=== PATIENT | female | born 1990 | race Caucasian/White ===

== ENCOUNTER 2017-03-18 21:38 | Emergency (ER) | payer BC, OTHER ==
[2017-03-18 21:58] VITALS: BP 100/67
[2017-03-18] MEDS ORDERED: Lidocaine 1% 20 ML MDV INJECT ONE (22:03)
[2017-03-18] MEDS ORDERED: Diphtheria,Pertussis(Acell),Tetanus Vaccine 0.5 ML SDV inactive IM ONE (22:03)
--- NOTE | 2017-03-18 22:08 | EDM.PDOC ---
ED HPI GENERAL MEDICAL PROBLEM - General Chief Complaint: Laceration Stated Complaint: LACERATION TO RIGHT HAND Time Seen by Provider: 03/18/17 22:03 Source of Information: Reports: Patient History Limitations: Reports: No Limitations - History of Present Illness INITIAL COMMENTS - FREE TEXT/NARRATIVE: Patient is a 26-year-old female who presents to the ED complaining of a laceration to the right index finger. Patient was cutting vegetables when this occurred. Bleeding has been controlled. Pain minimal. She is unsure for Tetanus status. She has no additional complaints. Onset: Today, Sudden Duration: Constant Location: Reports: Upper Extremity, Right Quality: Reports: Ache Severity: Mild Context: Reports: Other Right Hand Pain Score (Numeric/FACES): 1 - Related Data Allergies Allergy/AdvReac Type Severity Reaction Status Date / Time No Known Allergies Allergy Verified 03/18/17 21:55 Home Meds: Home Meds Cephalexin [Keflex] 500 mg PO Q6HR #28 cap 03/18/17 [Rx] Past Medical History - Past Health History Medical/Surgical History: Denies Medical/Surgical History Respiratory History: Reports: Asthma, Other (See Below) Other Respiratory History: exercise induced. 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: - Infectious Disease History Infectious Disease History: Reports: Chicken Pox - Past Surgical History HEENT Surgical History: Reports: Oral Surgery Other HEENT Surgeries/Procedures: wisdom teeth Female Surgical History: Reports: Breast Implant Social & Family History - Family History Family Medical History: Noncontributory HEENT: Reports: None Cardiac: Reports: None Respiratory: Reports: Asthma GI: Reports: None : Reports: None OBGYN: Reports: Musculoskeletal: Reports: None Neurological: Reports: None Psychiatric: Reports: None Endocrine/Metabolic: Reports: None Hematologic: Reports: None Immunologic: Reports: None Dermatologic: Reports: None Oncologic: Reports: None - Tobacco Use Smoking Status *Q: Current Every Day Smoker Years of Tobacco use: 4 Packs/Tins Daily: 0.5 Second Hand Smoke Exposure: No - Caffeine Use Caffeine Use: Reports: None - Recreational Drug Use Recreational Drug Use: No ED ROS GENERAL - Review of Systems Review Of Systems: See Below Musculoskeletal: Reports: Other (right index finger pain 2nd to laceration) Neurological: Denies: Numbness, Tingling ED EXAM, SKIN/RASH Exam: See Below Exam Limited By: No Limitations General Appearance: Alert, WD/WN, No Apparent Distress Ears: Hearing Grossly Normal Nose: Normal Inspection Throat/Mouth: Normal Voice, No Airway Compromise Neck: Normal Inspection, Supple Respiratory/Chest: No Respiratory Distress, No Accessory Muscle Use Cardiovascular: Normal Peripheral Pulses, Regular Rate, Rhythm Peripheral Pulses: 2+: Radial (R) Extremities: Other (2cm laceration to the right index middle phalanx volar side. Able to extend finger against resistance with minimal pain. ) Neurological: Alert, Oriented, CN II-XII Intact, Normal Cognition, No Motor/ Sensory Deficits Psychiatric: Normal Affect, Normal Mood Skin: Warm, Dry, Normal Color ED SKIN PROCEDURES - Laceration/Wound Repair Right Finger Lac/wound length in cm: 2 Appearance: subcutaneous Distal NVT: neuro & vascular intact, other (extension tendon involvement) Anesthetic Type: other (patient refused anesthetic) Skin prep: saline, sterile drape Exploration/Debridement/Repair: wound explored, in a bloodless field, explored to base, no foreign material found Closed with: sutures Suture size: 4-0 # of sutures: 5 Suture type: prolene, interrupted, simple Drain placement: No Sterile dressing applied: nurse Tetanus status addressed: Yes Complications: No Course - Vital Signs Last Recorded V/S: Last Vital Signs Temp 99.2 F 03/18/17 21:56 Pulse 60 03/18/17 21:56 Resp 18 03/18/17 21:56 BP 100/67 03/18/17 21:56 Pulse Ox 98 03/18/17 21:56 - Orders/Labs/Meds Orders: Active Orders 24 hr Category Date Time Status Vaccines to be Administered [RC] PER UNIT ROUTINE Care 03/18/17 22:03 Active Meds: Medications Discontinued Medications Generic Name Dose Route Start Last Admin Trade Name Freq PRN Reason Stop Dose Admin Cephalexin 500 mg 03/18/17 22:45 Keflex PO 03/18/17 22:46 ONETIME ONE Diphtheria/Tetanus/Acell Pertussis 0.5 ml 03/18/17 22:03 03/18/17 22:17 Boostrix IM 03/18/17 22:04 0.5 ml .ONCE ONE Administration Lidocaine HCl 20 ml 03/18/17 22:03 Xylocaine 1% INJECT 03/18/17 22:04 ONETIME ONE Lidocaine HCl Confirm 05/14/17 22:16 Xylocaine 1% Administered 03/18/17 22:17 Dose 50 ml .ROUTE .STK-MED ONE Lidocaine HCl 50 ml 03/18/17 22:21 Xylocaine 1% INJECT 03/18/17 22:22 ONETIME ONE - Re-Assessments/Exams Free Text/Narrative Re-Assessment/Exam: 03/18/17 22:04 2cm deep laceration to the right index finger middle phalanx. Ordered 1% lidocaine and tetanus update. 03/18/17 22:44 Laceration closed with no complications. Partial laceration of the middle phalanx extensor tendon. Dressing along with triple antibiotic ointment and splint applied by nursing staff. Ordered keflex 500mg PO. Departure - Departure Time of Disposition: 22:46 Disposition: Home, Self-Care 01 Condition: good Clinical Impression: Finger laceration involving tendon Qualifiers: Encounter type: initial encounter Qualified Code(s): S61.219A - Laceration without foreign body of unspecified finger without damage to nail, initial encounter; S66.929A - Laceration of unspecified muscle, fascia and tendon at wrist and hand level, unspecified hand, initial encounter - Discharge Information Prescriptions: Cephalexin [Keflex] 500 mg PO Q6HR #28 cap Instructions: Stitches, Delbert, or Adhesive Wound Closure, [id number], Laceration Care, Adult, [id number] Referrals: Kelli Gould PA-C [Primary Care Provider] - Forms: ED Department Discharge Additional Instructions: Clean site twice daily with soap and water, pat dry, reapply triple antibiotic ointment, and dressing. Keep area clean and dry. Followup with provider at the walk in clinic for suture removal in 7 days. Take the full course of the antibiotic as prescribed. Leave splint in place for one month only taking off to shower and wash hands. See orthopedic surgeon if you experience difficulty with extending your finger. Return to the E.D. for increased redness, increased pain, or purulent drainage. - My Orders Last 24 Hours: My Active Orders 03/18/17 22:03 Vaccines to be Administered [RC] PER UNIT ROUTINE - Assessment/Plan Last 24 Hours: My Active Orders 03/18/17 22:03 Vaccines to be Administered [RC] PER UNIT ROUTINE
[2017-03-18] MEDS ORDERED: Lidocaine 1% 50 ML MDV ONE (22:16)
[2017-03-18] MEDS ORDERED: Lidocaine 1% 10 ML MDV INJECT ONE (22:21)
[2017-03-18] MEDS ORDERED: Cephalexin 500 MG Cap PO ONE (22:45)
== END 2017-03-18 22:47 | disposition home or self-care (01) ==
LOC: JD.ED 21:38
DX: S61.210A Laceration without foreign body of right index finger without damage to nail, initial encounter (principal); S66.122A Laceration of flexor muscle, fascia and tendon of right middle finger at wrist and hand level, initial encounter; J45.909 Unspecified asthma, uncomplicated; F17.210 Nicotine dependence, cigarettes, uncomplicated; W26.0XXA Contact with knife, initial encounter
CPT/HCPCS: 12001; 90471; 99283; A9270; 90715

== ENCOUNTER 2017-06-01 18:56 | Emergency (ER) | payer OTHER ==
[2017-06-01] MEDS ORDERED: Lidocaine 1% 50 ML MDV INJECT ONE (19:30)
[2017-06-01] MEDS ORDERED: Lidocaine 1% 20 ML MDV INJECT ONE (19:35)
[2017-06-01] MEDS ORDERED: Lidocaine 1% 50 ML MDV ONE (19:39)
--- NOTE | 2017-06-01 20:12 | EDM.PDOC ---
ED HPI GENERAL MEDICAL PROBLEM - General Chief Complaint: Laceration Stated Complaint: FALL AND LACERATION TO RIGHT FOOT Time Seen by Provider: 06/01/17 19:06 Source of Information: Reports: Patient History Limitations: Reports: No Limitations - History of Present Illness INITIAL COMMENTS - FREE TEXT/NARRATIVE: This is a 26 y/o female. She tripped over a saw and cut her left foot on the medial side just above the arch area. She is up to date with her tetanus. She denies any other acute symptoms. 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 [No Known Home Meds] 06/01/17 [History] Past Medical History - Past Health History Medical/Surgical History: Denies Medical/Surgical History Respiratory History: Reports: Asthma, Other (See Below) Other Respiratory History: exercise induced. 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: - Infectious Disease History Infectious Disease History: Reports: Chicken Pox - Past Surgical History HEENT Surgical History: Reports: Oral Surgery Other HEENT Surgeries/Procedures: wisdom teeth Female Surgical History: Reports: Breast Implant Social & Family History - Family History Family Medical History: Noncontributory HEENT: Reports: None Cardiac: Reports: None Respiratory: Reports: Asthma GI: Reports: None : Reports: None OBGYN: Reports: Musculoskeletal: Reports: None Neurological: Reports: None Psychiatric: Reports: None Endocrine/Metabolic: Reports: None Hematologic: Reports: None Immunologic: Reports: None Dermatologic: Reports: None Oncologic: Reports: None - Tobacco Use Smoking Status *Q: Never Smoker Years of Tobacco use: 4 Packs/Tins Daily: 0.5 Second Hand Smoke Exposure: No - Caffeine Use Caffeine Use: Reports: Coffee - Recreational Drug Use Recreational Drug Use: No ED ROS GENERAL - Review of Systems Review Of Systems: See Below Constitutional: Reports: No Symptoms HEENT: Reports: No Symptoms Respiratory: Reports: No Symptoms Cardiovascular: Reports: No Symptoms Endocrine: Reports: No Symptoms GI/Abdominal: Reports: No Symptoms : Reports: No Symptoms Musculoskeletal: Reports: Other (As per HPI) Skin: Reports: Other (As per HPI) Neurological: Reports: No Symptoms Hematologic/Lymphatic: Reports: No Symptoms ED EXAM, SKIN/RASH Exam: See Below Exam Limited By: No Limitations General Appearance: Alert, WD/WN, No Apparent Distress Eye Exam: Bilateral Eye: Normal Inspection Ears: Normal External Exam Nose: Normal Inspection Throat/Mouth: Normal Lips, Normal Voice Head: Atraumatic Neck: Supple Respiratory/Chest: No Respiratory Distress Back Exam: Full Range of Motion Extremities: Other (Left foot on the medial side slightly posterior and above the arch is a 6 cm linear laceration. There appears to be some muscle showing from the laceration about 3 cm bulging out. NV intact distal to the laceration. ) Neurological: Alert, Oriented Psychiatric: Normal Affect, Normal Mood Skin: Warm, Dry ED SKIN PROCEDURES - Laceration/Wound Repair Left Medial Foot Lac/Wound length In cm: 6 Appearance: Linear, Clean Distal NVT: Neuro & Vascular Intact Anesthetic Type: Local Local Anesthesia - Lidocaine (Xylocaine): 1% Plain Local Anesthetic Volume: Other (10 cc) Skin Prep: Chlorhexidine (Hibiciens), Providone-Iodine (Betadine) Saline Irrigation (cc's): 200 Exploration/Debridement/Repair: Wound Explored, Explored to Base, No Foreign Material Found Suture Size: 4-0 # of Sutures: 6 Suture Type: Nylon Suture Size: 3-0 (chromic) # of Sutures: 2 Drain Placement: No Sterile Dressing Applied: Nurse Tetanus Status Addressed: Yes Complications: No Progress/Comments: Patient tolerated the procedure well. Course - Vital Signs Last Recorded V/S: Last Vital Signs Temp 98.4 F 06/01/17 19:06 Pulse 78 06/01/17 19:06 Resp 18 06/01/17 19:06 BP 121/78 06/01/17 19:06 Pulse Ox 98 06/01/17 19:06 - Orders/Labs/Meds Meds: Medications Discontinued Medications Generic Name Dose Route Start Last Admin Trade Name Linda PRN Reason Stop Dose Admin Lidocaine HCl 20 ml 06/01/17 19:35 06/01/17 19:49 Xylocaine 1% INJECT 06/01/17 19:36 Not Given ONETIME ONE Lidocaine HCl Confirm 06/01/17 19:39 06/01/17 19:50 Xylocaine 1% Administered 06/01/17 19:40 Not Given Dose 50 ml .ROUTE .STK-MED ONE Lidocaine HCl 50 ml 06/01/17 19:30 Xylocaine 1% INJECT 06/01/17 19:31 ONETIME ONE Departure - Departure Time of Disposition: 20:13 Disposition: Home, Self-Care 01 Condition: Good Clinical Impression: Laceration of left foot - Discharge Information Referrals: Kelli Gould PA-C [Primary Care Provider] - Forms: ED Department Discharge Additional Instructions: Keep the area clean, dry and covered. Remember it will be sore so take some ibuprophen, tylenol or aleve. Suture removal in 10 days with the ER or your provider. Watch for signs of infection such as redness, yellow purulent drainage or increase swelling. If signs of infection return to the ER immediately.
[2017-06-02 00:18] VITALS: BP 121/78
== END 2017-06-01 20:38 | disposition home or self-care (01) ==
LOC: JD.ED 18:56
DX: S91.312A Laceration without foreign body, left foot, initial encounter (principal); J45.909 Unspecified asthma, uncomplicated; Z98.890 Other specified postprocedural states; W27.0XXA Contact with workbench tool, initial encounter
CPT/HCPCS: 12042; 99282-25; 99283-25

== ENCOUNTER 2017-06-11 10:50 | Emergency (ER) | payer OTHER ==
[2017-06-11 11:02] VITALS: BP 101/54
--- NOTE | 2017-06-11 11:14 | EDM.PDOC ---
ED HPI GENERAL MEDICAL PROBLEM - General Chief Complaint: Wound Recheck Stated Complaint: REMOVAL OF STITCHES Time Seen by Provider: 06/11/17 11:09 Source of Information: Reports: Patient History Limitations: Reports: No Limitations - History of Present Illness INITIAL COMMENTS - FREE TEXT/NARRATIVE: Patient is a 26-year-old female reports back to the ED to have sutures removed from the left foot. She sustained a laceration after accidentally running into a saw antonio. Laceration measured approximately 6 cm requiring 6 sutures 10 days ago. Patient has been cleansing the site with antibacterial soap and placing bacitracin. She remains active going to the gym. Pain is minimal. There is some mild redness to suture line with no purulent drainage or increased warmth noted. Patient has minimal pain. Left Feet Pain Score (Numeric/FACES): 2 - Related Data Allergies Allergy/AdvReac Type Severity Reaction Status Date / Time No Known Allergies Allergy Verified 06/11/17 11:00 Home Meds: Home Meds . [No Known Home Meds] 06/01/17 [History] Past Medical History - Past Health History Medical/Surgical History: Denies Medical/Surgical History Respiratory History: Reports: Asthma, Other (See Below) Other Respiratory History: exercise induced. 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: - Infectious Disease History Infectious Disease History: Reports: Chicken Pox - Past Surgical History HEENT Surgical History: Reports: Oral Surgery Other HEENT Surgeries/Procedures: wisdom teeth Female Surgical History: Reports: Breast Implant Social & Family History - Family History Family Medical History: Noncontributory HEENT: Reports: None Cardiac: Reports: None Respiratory: Reports: Asthma GI: Reports: None : Reports: None OBGYN: Reports: Musculoskeletal: Reports: None Neurological: Reports: None Psychiatric: Reports: None Endocrine/Metabolic: Reports: None Hematologic: Reports: None Immunologic: Reports: None Dermatologic: Reports: None Oncologic: Reports: None - Tobacco Use Smoking Status *Q: Never Smoker Years of Tobacco use: 4 Packs/Tins Daily: 0.5 Second Hand Smoke Exposure: No - Caffeine Use Caffeine Use: Reports: Coffee - Recreational Drug Use Recreational Drug Use: No ED ROS GENERAL - Review of Systems Review Of Systems: ROS reveals no pertinent complaints other than HPI. ED EXAM, SKIN/RASH Exam: See Below Exam Limited By: No Limitations General Appearance: Alert, WD/WN, No Apparent Distress Ears: Hearing Grossly Normal Nose: Normal Inspection Throat/Mouth: Normal Voice, No Airway Compromise Neck: Normal Inspection, Supple Respiratory/Chest: No Respiratory Distress, No Accessory Muscle Use Cardiovascular: Normal Peripheral Pulses, Regular Rate, Rhythm Extremities: Other (Laceration to the medial aspect foot with sutures in place. Wound redness noted to the suture line consistent for suture reaction. No increased warmth or purulent drainage present. Wound edges are approximated but are not completely granulated together. Will hold off on removing sutures for additional 4 days. ) Neurological: Alert, Oriented, Normal Cognition, No Motor/Sensory Deficits Psychiatric: Normal Affect, Normal Mood Course - Vital Signs Last Recorded V/S: Last Vital Signs Temp 98.0 F 06/11/17 11:01 Pulse 87 06/11/17 11:01 Resp 16 06/11/17 11:01 BP 101/54 L 06/11/17 11:01 Pulse Ox 99 06/11/17 11:01 - Re-Assessments/Exams Free Text/Narrative Re-Assessment/Exam: Sutures are in place. Mild redness to suture line. No increased warmth or purulent drainage present. Will leave sutures in place for another 4 days. Wound edges are approximated but do not appear to be granulated together. Will discharge patient home with instructions as documented. Departure - Departure Time of Disposition: 11:21 Disposition: Home, Self-Care 01 Condition: Good Clinical Impression: Laceration of left foot Qualifiers: Encounter type: subsequent encounter Qualified Code(s): S91.312D - Laceration without foreign body, left foot, subsequent encounter - Discharge Information Instructions: Wound Infection, [id number], Stitches, Delbert, or Adhesive Wound Closure, [id number] Referrals: Kelli Gould PA-C [Primary Care Provider] - Forms: ED Department Discharge Additional Instructions: See your PCP or return back to the ED to have sutures removed in 4 days. Cleanse site twice daily with soap and water, pat dry, reapply triple antibiotic ointment. Keep area clean and dry. Return back to ED for any signs of infection.
== END 2017-06-11 11:35 | disposition home or self-care (01) ==
LOC: JD.ED 10:50
DX: S91.312D Laceration without foreign body, left foot, subsequent encounter (principal); W31.2XXD Contact with powered woodworking and forming machines, subsequent encounter
CPT/HCPCS: 99283

== ENCOUNTER 2025-01-06 21:52 | Observation (INO) | payer BC ==
[2025-01-06 22:40] LABS: APPEARANCE,URINE CLEAR (Clear); BILIRUBIN,URINE NEGATIVE (Negative); COLOR,URINE YELLOW (Yellow); GLUCOSE,URINE NEGATIVE (Negative); KETONES,URINE NEGATIVE (Negative); LEUKOCYTE ESTERASE,URINE NEGATIVE (Negative); NITRITE,URINE NEGATIVE (Negative); OCCULT BLOOD,URINE TRACE-INTACT (Negative); PROTEIN,URINE NEGATIVE (Negative); UROBILINOGEN,URINE 0.2 (0.2-1.0)
[2025-01-06 22:48] LABS: BACTERIA,URINE MODERATE /hpf (FEW); MUCUS,URINE MODERATE /hpf (FEW); WBC,URINE 0-5 /hpf (0-5)
[2025-01-06 23:13] VITALS: BP 112/60; PULSE 97
== END 2025-01-07 00:05 | disposition home or self-care (01) ==
LOC: JD.OBCHECK 21:52 → JD.OB 21:56 → JD.OBCHECK 22:28 → UNDOADMOB 22:28 → UNDODISOB 01-07 00:05
PROVIDERS: ADMIT Family Medicine; ATTEND Family Medicine
DX: O26.892 Other specified pregnancy related conditions, second trimester (principal); R10.9 Unspecified abdominal pain; O46.92 Antepartum hemorrhage, unspecified, second trimester; Z3A.24 24 weeks gestation of pregnancy
CPT/HCPCS: 59025; 76815; 76815-26; 81001; 81515

== ENCOUNTER 2025-04-25 12:45 | Inpatient (IN) | payer BC ==
[2025-04-25] MEDS ORDERED: Ondansetron 4 MG/2 ML SDV IVPUSH PRN (14:07)
[2025-04-25] MEDS ORDERED: Lidocaine 1% 50 ML MDV INJECT PRN (14:07)
[2025-04-25 15:05] LABS: BASOPHILS PERCENT AUTO 0.4 % (0.0-1.0); EOSINOPHILS ABSOLUTE AUTO 0.1 K/mm3 (0.0-0.4); EOSINOPHILS PERCENT AUTO 0.9 % (0.0-6.0); HEMATOCRIT 30.8 % (37.0-47.0); HEMOGLOBIN 9.9 gm/dl (12.0-16.0); IMMATURE GRAN ABSOLUTE AUTO 0.23 K/mm3 (0.00-0.05); LYMPHOCYTES ABSOLUTE AUTO 1.4 K/mm3 (1.0-4.8); LYMPHOCYTES PERCENT AUTO 12.2 % (24.0-44.0); MEAN CORPUSCULAR HGB CONC 32.1 g/dl (32.0-36.0); MEAN CORPUSCULAR VOLUME 80.8 fl (83.0-99.0); MEAN PLATELET VOLUME 10.7 fl (9.4-12.3); MONOCYTES ABSOLUTE AUTO 0.9 K/mm3 (0.0-0.8); MONOCYTES PERCENT AUTO 7.6 % (0.0-8.0); NEUTROPHILS ABSOLUTE AUTO 8.8 K/mm3 (1.8-7.7); NEUTROPHILS PERCENT AUTO 76.9 % (41.0-71.0); PLATELET COUNT,PLT 213 K/mm3 (150-400); RED BLOOD CELL COUNT 3.81 M/mm3 (4.10-5.30); WHITE BLOOD CELL COUNT,WBC 11.39 K/mm3 (3.9-11.3)
[2025-04-25] MEDS: Oxytocin/0.9 % Sodium Chloride 30 UNIT/500 ML BAG IV SCH (17:44)
[2025-04-25] MEDS: Lactated Ringers 1,000 ML IV SCH (17:44)
[2025-04-26] MEDS: Nalbuphine 10 MG/1 ML Vial IVPUSH PRN (03:06)
[2025-04-26] MEDS ORDERED: diphenhydrAMINE 50 MG/ML SDV IVPUSH PRN (04:36)
[2025-04-26] MEDS: Bupivacaine/fentaNYL/NS 100 ML Bag EPIDUR PRN (05:01)
[2025-04-26] MEDS: ePHEDrine 50 MG/ML SDV IVPUSH PRN (05:22)
[2025-04-26] MEDS: Oxytocin/0.9 % Sodium Chloride 30 UNIT/500 ML BAG IV SCH (08:53)
[2025-04-26] MEDS ORDERED: Prenatal Multivitamin with Calcium/Folic Acid/Iron Tab PO SCH (09:00)
[2025-04-26] MEDS: ceFAZolin 2 GM Vial IVPUSH ONE (09:21)
[2025-04-26] MEDS ORDERED: Acetaminophen 325 MG Tab PO PRN (09:56)
[2025-04-26] MEDS ORDERED: Docusate Sodium 100 MG Cap PO PRN (09:56)
[2025-04-26] MEDS: Witch Hazel Medicated Pads 40/Jar TOP PRN (11:21)
[2025-04-26] MEDS: Benzocaine/Menthol 20%-0.5% Spray 78 GM Cannister TOP PRN (11:21)
[2025-04-26] MEDS: Calcium Carbonate 500 MG Tab.Chew PO ONE (11:38)
[2025-04-26] MEDS: Ondansetron 4 MG/2 ML SDV IVPUSH ONE (11:38)
[2025-04-26] MEDS: Ibuprofen 600 MG Tab PO SCH (13:55)
[2025-04-27 11:27] VITALS: BP 109/62; PULSE 66
[2025-04-27] MEDS: Ferrous Sulfate 324 MG Tab.EC PO SCH (11:29)
== END 2025-04-27 11:00 | disposition home or self-care (01) | DRG 560 ==
LOC: JD.OBCHECK 12:45 → JD.OB 13:24 → OBSVTOIN 04-26 08:01 → JD.OB 04-26 08:02
PROVIDERS: ADMIT Family Medicine; ATTEND Family Medicine
PROC: 3E0R3BZ Introduction of Anesthetic Agent into Spinal Canal, Percutaneous Approach (ICD-10-PCS; principal; 2025-04-26)
PROC: 10E0XZZ Delivery of Products of Conception, External Approach (ICD-10-PCS; principal; 2025-04-26)
PROC: 10H07YZ Insertion of Other Device into Products of Conception, Via Natural or Artificial Opening (ICD-10-PCS; principal; 2025-04-26)
DX: O73.0 Retained placenta without hemorrhage (principal); Z3A.39 39 weeks gestation of pregnancy; Z37.0 Single live birth; Z98.890 Other specified postprocedural states; Z79.899 Other long term (current) drug therapy; O99.52 Diseases of the respiratory system complicating childbirth; J45.909 Unspecified asthma, uncomplicated
CPT/HCPCS: 36415; 51701; 51702; 59025; 84112; 85025; 86592; 86850; 86900; 86901; A9270-GY; J0690; J2300; J2405; J3490; J7120; J7999

== ENCOUNTER 2025-04-28 09:38 | Emergency (ER) | payer BC ==
[2025-04-28 13:54] VITALS: BP 126/86; PULSE 65
== END 2025-04-28 11:12 | disposition home or self-care (01) ==
LOC: JD.ED 09:38
DX: O99.63 Diseases of the digestive system complicating the puerperium (principal); K59.00 Constipation, unspecified; Z79.899 Other long term (current) drug therapy
CPT/HCPCS: 99283